=== PATIENT | female | born 1985 | race Caucasian/White ===

== ENCOUNTER 2016-07-17 00:29 | Inpatient (IN) | payer OTHER ==
[~2016-07-17] VITALS: Ht 172.7 cm; Wt 77.3 kg
[2016-07-17] VITALS (33 sets, daily range): BP systolic 105–152; BP diastolic 64–91; PULSE 61–96; TEMP 97.7–98.1
[~2016-07-17 00:29] MED LIST: FOLIC ACID 11 MG/TA1 PO; PRENATAL1 TA1 PO
[2016-07-17 03:10] LABS: BASO # 0.1 (0.0-0.2); BASO % 0.4 % (0.0-2.0); EOS # 0.1 (0.0-0.7); EOS % 0.5 % (0-4.0); GRAN % 70.1 % (42.2-75.2); HEMOGLOBIN 12.6 g/dl (12.5-16.0); LYMPH # 2.2 (1.2-3.4); LYMPH % 19.4 % (20.0-51.0); MEAN CELL VOLUME 88 fl (80.0-100.0); MEAN CORPUSCULAR HEMOGLOBIN 31 pg (27.0-31.0); MEAN CORPUSCULAR HGB CONC 35 g/dl (33.0-37.0); MEAN PLATELET VOLUME 11.8 fl (7.4-10.4); MONO % 8.9 % (1.7-9.3); PLATELET COUNT 169 K/mm3 (130-400); REDCELL DISTRIBUTION WIDTH-CV 12.6 % (11.5-14.5); WHITE BLOOD COUNT 11.4 K/mm3 (4.8-10.8)
[2016-07-18 08:30] VITALS: BP 121/77; PULSE 88; TEMP 98.5
[2016-07-18] MEDS ORDERED: PERCOCET 325 MG1 TA2 PO (10:21)
[2016-07-18] MEDS ORDERED: MOTRIN 800800 MG/TAB PO (10:21)
== END 2016-07-18 14:05 | disposition home health service (06) | DRG 775 ==
LOC: LDRO 00:29 → LDR 01:30 → OB 12:15
PROVIDERS: Obstetrics & Gynecology
PROC: 10E0XZZ Delivery of Products of Conception, External Approach (ICD-10-PCS; principal; 2016-07-17)
DX: O48.0 Post-term pregnancy (principal); O36.0130 Maternal care for anti-D [Rh] antibodies, third trimester, not applicable or unspecified; Z3A.41 41 weeks gestation of pregnancy; Z37.0 Single live birth
CPT/HCPCS: J2590; J7120

== ENCOUNTER 2018-09-04 18:04 | Inpatient (IN) | payer BC ==
[2018-09-04] VITALS (16 sets, daily range): BP systolic 111–138; BP diastolic 57–88; PULSE 64–83; TEMP 98–98.4
[~2018-09-04] VITALS: Ht 172.7 cm; Wt 74.5 kg
[~2018-09-04 18:04] MED LIST changes: +MOTRIN 800800 MG/TAB PO; +PERCOCET 325 MG1 TA2 PO
--- NOTE | 2018-09-04 18:12 | NUR ---
Ambulatory to unit, accompanied by spouse. Oriented to room, monitor, plan of care. Pt reports "my water started leaking at 5 this morning, I wasn't sure and I wasn't really having contractions"
[2018-09-04 19:09] LABS: BASO # 0.1 (0.0-0.2); BASO % 0.5 % (0.0-2.0); EOS # 0.1 (0.0-0.7); EOS % 0.4 % (0-4.0); GRAN # 7.7 (1.4-6.5); HEMATOCRIT 37.8 % (37.0-47.0); HEMOGLOBIN 13.1 g/dl (12.5-16.0); LYMPH # 2.5 (1.2-3.4); LYMPH % 21.4 % (20.0-51.0); MEAN CELL VOLUME 90 fl (80.0-100.0); MEAN CORPUSCULAR HEMOGLOBIN 31 pg (27.0-31.0); MEAN CORPUSCULAR HGB CONC 35 g/dl (33.0-37.0); MEAN PLATELET VOLUME 11.8 fl (7.4-10.4); MONO # 1.3 (0.1-0.6); MONO % 10.7 % (1.7-9.3); PLATELET COUNT 182 K/mm3 (130-400); RED BLOOD COUNT 4.19 M/mm3 (4.10-5.30); REDCELL DISTRIBUTION WIDTH-CV 12.7 % (11.5-14.5)
--- NOTE | 2018-09-04 21:20 | NUR ---
Pt reports "definitely feeling pressure" SVE complete ,+2. 2121 Dr Lucas notified to come for delivery. Pt reports "it's hard not to push" pt pushing epidural VALET button, Pitocin gtt turned off. 2128 Dr Lucas into room. Pt set up and pressped for delivery. [address] Lucas.
--- NOTE | 2018-09-04 21:36 | NUR ---
Placenta delivers spont and intact with 3 vessel cord. Pitocin gtt to bolus rate. 2139 Perineal inspection completete. Pericare done, ice pack to perineum bed together, warm blanket given.
[2018-09-05] VITALS: BP 112/73; TEMP 98.7
--- NOTE | 2018-09-05 | NUR ---
IV to INT, Epidural catheter dc'd. Up to bathroom with steady gait, voids good amount, performs own pericare. Clean gown on and ambulates to room.
[2018-09-05 05:45] VITALS: BP 120/73; PULSE 67; TEMP 98.4
[2018-09-05 07:55] VITALS: BP 129/74; PULSE 97; TEMP 97.7
--- NOTE | 2018-09-05 09:24 | NUR ---
Initial visit; Parents thanked Senior Embedded Software Engineer for offering congratulations and God's blessings for the of their daughter. Senior Embedded Software Engineer thanked family for choosing [facility].
[2018-09-05 11:00] VITALS: BP 113/76; PULSE 91; TEMP 97.9
[2018-09-05 15:50] VITALS: BP 125/74; PULSE 88; TEMP 97.7
[2018-09-05 21:15] VITALS: BP 121/72; PULSE 87; TEMP 98.1
[2018-09-06] MEDS ORDERED: IBU600 MG PO (08:48)
== END 2018-09-06 11:33 | disposition home or self-care (01) | DRG 807 ==
LOC: LDRO 18:04 → LDR 18:35 → OB 09-05 00:52
PROVIDERS: Obstetrics & Gynecology; ADMIT Obstetrics & Gynecology
PROC: 10E0XZZ Delivery of Products of Conception, External Approach (ICD-10-PCS; principal; 2018-09-04)
DX: O42.02 Full-term premature rupture of membranes, onset of labor within 24 hours of rupture (principal); Z37.0 Single live birth; Z3A.38 38 weeks gestation of pregnancy
CPT/HCPCS: J2590; J2791; J7120